=== PATIENT | female | born 1985 | race Caucasian/White ===

== ENCOUNTER 2017-06-02 08:08 | Emergency (ER) | payer BC ==
--- NOTE | 2017-06-02 08:29 | PDOC ---
General Adult HPI - General Chief Complaint: General Medical Stated Complaint: back pain radiating to front for two weeks Date Seen by Provider: 06/02/17 Time Seen by Provider: 08:24 Source: POSITIVE: Patient Exam Limitations: POSITIVE: No limitations Nurse's Notes Reviewed & Considered: Yes - History of Present Illness Initial Comment: This is a 32-year-old female who presents to the emergency department with history of increasing problems with low back pain over the course the past 2 weeks prior to arrival. She states that it was initially intermittent, but now it's constant and more severe. She's never had problems with her back in the past, and she cannot remember any specific injury that caused the pain to start 2 weeks ago. She does have an son who she lifts frequently, but no other heavy lifting as been done recently. The pain does radiate down both legs at times, and her legs occasionally go numb. No loss of bowel or bladder control. Have you received a tetanus shot in the past 10 years?: Yes - Patient Home Medications Home Medications: Home Medications Lansoprazole [Prevacid] 30 mg PO DAILY #90 capsule. 10/17/16 - Patient Allergies Allergies/Adverse Reactions: Allergies Allergy/AdvReac Type Severity Reaction Status Date / Time morphine Allergy Severe RASH Verified 06/02/17 08:21 Penicillins Allergy Severe anaphylaxsi Verified 10/17/16 08:08 s Past Medical History - heen HEENT History: Denies History Respiratory History: Denies History Gastrointestinal History: Gallbladder Disease Genitourinary History: Denies History Endocrine History: Denies History Musculoskeletal History: Denies History Prosthesis or Implant: No Neurological History: Denies History Blood Disorders: Denies History Psychiatric History: Denies History History of Sexually Transmitted Diseases: No Cancer History: Denies History History of MDRO: No History of Other Communicable Diseases: No Tobacco Use: Never Smoker Alcohol Use: None Substance Use Type: None Previous Surgical History: No Type / Date of Surgery: FLAQUITO/ Anesthesia Reactions: No Malignant Hyperthermia: No Significant Family History: Cancer, Diabetes, Hypertension Past Medical History Reviewed: Reviewed - Changes Made ROS - Limitations ROS Limitations: No Limitations Constitution: DENIES: Chills, Fever Neurological: REPORTS: Numbness (Intermittently in her legs). DENIES: Difficulty Walking Musculoskeletal: REPORTS: Back Pain. DENIES: Recent Injury Genitourinary: REPORTS: Other (No incontinence). DENIES: Dysuria General Adult Exam - General Appearance General Appearance: POSITIVE: Alert, Cooperative, Moderate Distress - HEENT HEENT: NEGATIVE: Scleral Icterus - Respiratory Respiratory: POSITIVE: No Respiratory Distress, Breath Sounds Normal. NEGATIVE : Wheezes, Rales, Rhonchi - Cardiovascular Cardiovascular: POSITIVE: Regular Rate & Rhythm, No Murmur, No Gallop - Back Back: POSITIVE: Normal Inspection, Lumbosacral Tenderness (She has tenderness and spasm throughout her lumbosacral region. No central spinous tenderness. Straight leg raise is negative bilaterally.) - Skin Skin: POSITIVE: Warm, Dry, No Rash - Neurological / Psychological Neurological: POSITIVE: Affect Apporpriate, Oriented X3 Reflexes: Patellar (R): 2+, Patellar (L): 2+ Discharge Condition: Stable
[2017-06-02] MEDS ORDERED: KETOROLAC 30 MG/1 ML VIAL IM ONE (08:32)
[2017-06-02 09:03] VITALS: RESP 16; TEMP 98.4
[2017-06-02] MEDS ORDERED: Sodium Chloride 0.9% 1,000 ML PRIMARY IV ONE (09:04)
[2017-06-02 09:05] LABS: BILIRUBIN,URINE NEGATIVE (NEG); CLARITY,URINE CLEAR (CLEAR); COLOR,URINE YELLOW; GLUCOSE, URINE (UA) NEGATIVE (NEG); NITRATE,URINE NEGATIVE (NEG); OCCULT BLOOD,URINE NEGATIVE (NEG); PROTEIN,URINE NEGATIVE (NEG); UROBILINOGEN,URINE 0.2 EU/dL (0.2)
[2017-06-02 09:06] LABS: URINE SAMPLE TYPE CLEAN CATCH URINE
--- NOTE | 2017-06-02 09:06 | PDOC ---
Transfer of Care - Care Accepted Time Care Transferred: 08:45 Report from Transferring Physician Received: Yes MDM / ED Course: I took over care of Ms. Mendieta at the time of Dr. Frankie Cosme shift ending. She had received IM Norflex and Toradol. She had minimal improvement with her pain at that time. I have ordered laboratory studies and x-ray of her lumbar spine. Home Medications: Home Medications Lansoprazole [Prevacid] 30 mg PO DAILY #90 capsule. 10/17/16 Allergies/Adverse Reactions: Allergies morphine Allergy (Severe, Verified 06/02/17 08:21) RASH Penicillins Allergy (Severe, Verified 10/17/16 08:08) anaphylaxsis Vital Signs Reviewed: Yes Nurse's Notes Reviewed & Considered: Yes - Pending Patient Care Items Pending Patient Care Items: POSITIVE: Labs, X-ray Results, Pain Control - Expected Patient Outcome Tentative Impression of Patient: Low back pain Expected Disposition: POSITIVE: Home - Re-Evaluation of Patient Re-Examine Time:: 11:26 Disposition of Patient: POSITIVE: Discharged Counseled: POSITIVE: Patient, RE: Lab Results, RE: Radiology Results, RE: DX, RE : Need for F/U Pending Test Results Documented: Yes Clinical Impression Documented: Yes (low back pain likely related to paraspinal muscle spasms.) - Results Reviewed Lab Results Reviewed by Me: Yes (CBC, CMP, CRP, UA, and L-spine x-rays are all unremarkable.) Lab Results: Laboratory Results 06/02/17 06/02/17 06/02/17 Range/Units 08:47 09:04 09:26 WBC 5.90 (4.8-10.8) 10^3/uL RBC 5.36 (4.20-5.40) 10^6/uL Hgb 14.9 (12.0-16.0) g/dL Hct 42.9 (37.0-47.0) % MCV 80.0 L (81-99) FL MCH 27.8 (27-31) PG MCHC 34.7 (33-37) g/dL RDW Std Deviation 41.9 (39-50) fL RDW Coeff of [place] 14.4 (11.5-14.5) % Plt Count 295 (140-350) 10*3/uL MPV 9.5 (7.4-12.2) FL Immature Gran % (Auto) 0.2 (0-5) % Neut % (Auto) 59.9 (50-80) % Lymph % (Auto) 28.5 (10-50) % [place] % (Auto) 8.8 (5-15) % Eos % (Auto) 1.2 (0-8) % Baso % (Auto) 1.4 H (0-1) % Immature Gran # (Auto) 0.01 10*3/UL Neut # (Auto) 3.54 10*3/UL Lymph # (Auto) 1.68 10*3/uL [place] # (Auto) 0.52 (0.3-0.8) 10*3/UL Eos # (Auto) 0.07 10*3/UL Baso # (Auto) 0.08 10*3/UL WBC Morphology Comment Normal morphology (NORM) Plt Morphology Comment Normal morphology (NORM) RBC Morph Comment Normal morphology (NORM) Sodium 141 (135-145) meq/L Potassium 3.9 (3.8-5.2) meq/L Chloride 108 (98-112) meq/L Carbon Dioxide 23 (23-33) meq/L Anion Gap 10 (5-20) BUN 10 (7-22) mg/dL Creatinine 0.6 (0.50-1.20) mg/dL Estimated GFR > 60 (>60 ml/min/1.73m(2)) BUN/Creatinine Ratio 16.66 (6-20) Glucose 90 (78-110) mg/dL Calculated Osmolality 290.0 (267-292) mOsm/kg Calcium 9.4 (8.7-10.7) mg/dL Magnesium 1.7 (1.6-2.4) mg/dL Total Bilirubin 0.5 (0.3-1.2) mg/dL AST 16 (8-39) IU/L ALT 24 (9-52) IU/L Alkaline Phosphatase 62 (38-126) IU/L C-Reactive Protein 0.6 (0.0-0.9) mg/dL Total Protein 7.5 (6.1-8.0) g/dL Albumin 4.4 (3.5-4.8) g/dL Globulin 3.1 (2.50-4.10) g/dL Albumin/Globulin Ratio 1.40 (1.3-2.0) mg/g Ur Collection Type Clean catch urine Urine Color Yellow Urine Clarity Clear (CLEAR) Urine pH 5.0 (5.0-8.5) Ur Specific [place] 1.020 (1.005-1.030) Urine Protein Negative (NEG) mg/dl Urine Glucose (UA) Negative (NEG) mg/dL Urine Ketones Negative (NEG) Urine Occult Blood Negative (NEG) Urine Nitrate Negative (NEG) Urine Bilirubin Negative (NEG) Urine Urobilinogen 0.2 (0.2) EU/dL Ur Leukocyte Esterase Negative (NEG) Ur Culture Indicated? Culture not set - Consult Recommendations:: Rest, back exercises, [place] prescribed, baclofen prescribed. Patient Care Time - Estimated PCT Patient Care Time (In Minutes): 30 Vital Signs - Recent Vital Signs Vital Signs: Vital Signs (Last 8 hours) Temp Pulse Resp BP Pulse Ox 06/02/17 08:52 98.4 F 69 16 160/116 98 - VS Reviewed Vital Signs Reviewed: Yes Discharge Clinical Impression: Low back pain Discharge Disposition: Discharged to Home Condition: Stable Patient Instructions Given at Discharge: Acute Low Back Pain (ED)
[2017-06-02 09:34] LABS: BASOPHILS # (AUTO) 0.08 10*3/UL; BASOPHILS % (AUTO) 1.4 % (0-1); EOSINOPHILS # (AUTO) 0.07 10*3/UL; EOSINOPHILS % (AUTO) 1.2 % (0-8); HEMATOCRIT 42.9 % (37.0-47.0); HEMOGLOBIN 14.9 g/dL (12.0-16.0); LYMPHOCYTES # (AUTO) 1.68 10*3/uL; MEAN CORPUSCULAR HEMOGLOBIN 27.8 PG (27-31); MEAN CORPUSCULAR HGB CONC 34.7 g/dL (33-37); MEAN PLATELET VOLUME 9.5 FL (7.4-12.2); MONOCYTES # (AUTO) 0.52 10*3/UL (0.3-0.8); MONOCYTES % (AUTO) 8.8 % (5-15); NEUTROPHILS # (AUTO) 3.54 10*3/UL; NEUTROPHILS % (AUTO) 59.9 % (50-80); RED BLOOD COUNT 5.36 10^6/uL (4.20-5.40)
[2017-06-02 09:36] LABS: PLATELET MORPHOLOGY COMMENT NORMAL MORPHOLOGY (NORM); RBC MORPHOLOGY COMMENT NORMAL MORPHOLOGY (NORM); WBC MORPHOLOGY COMMENT NORMAL MORPHOLOGY (NORM)
[2017-06-02 09:51] LABS: BLOOD UREA NITROGEN 10 mg/dL (7-22); BUN/CREATININE RATIO 16.66 (6-20); C-REACTIVE PROTEIN 0.6 mg/dL (0.0-0.9); CALCIUM 9.4 mg/dL (8.7-10.7); EST GLOMERULAR FILTRATION > 60 (>60 ml/min/1.73m(2)); MAGNESIUM 1.7 mg/dL (1.6-2.4); SERUM ALBUMIN 4.4 g/dL (3.5-4.8)
[2017-06-02] MEDS ORDERED: LORazepam 2 MG/1 ML VIAL IVP ONE (11:35)
--- NOTE | 2017-06-02 11:57 | DI ---
XR L-SPINE MIN 4 VW,06/02/2017 9:04 AM: Clinical History: Pain Previous Exam: None at this facility. Findings: AP, lateral and oblique views of the lumbar spine are obtained, and demonstrate anatomic alignment wi thout fractures. There is loss of intervertebral disc height at the L5/S1 level. There is no evidence of spondylolysis nor spondylolisthesis. Patient is status post cholecystectomy. Patient is also status post bilateral tubal ligation. Impression: Mild degenerative changes at L5/S1.
== END 2017-06-02 12:00 | disposition home or self-care (01) ==
LOC: ER 08:08
DX: M54.5 Low back pain (principal); R20.0 Anesthesia of skin
CPT/HCPCS: 72110; 80053; 81003; 83735; 85025; 86140; 96372; 96374; 99283 ×2; J1885; J2060; J2360; J7030